=== PATIENT | female | born 1970 | race Two or more races ===

== ENCOUNTER → 2017-07-11 | Emergency (ER) | payer OTHER ==
[~2017-07-11] VITALS: Ht 157.5 cm; Wt 84.4 kg
[~2017-07-11] MED LIST: GLIMEPIRIDE2 MG; GLUCOTROL10 MG; LANTUS; LEVSIN/SL0.125 MG SL; ONGLYZA2.5 MG; PRINIVIL5 MG; ZANTAC300 MG
== END | disposition home or self-care (01) ==
LOC: ER 08:58
DX: B34.9 Viral infection, unspecified (principal)

== ENCOUNTER 2017-11-09 16:15 | Emergency (ER) | payer OTHER ==
[~2017-11-09] VITALS: Ht 157.5 cm; Wt 84.4 kg
[2017-11-09] MEDS ORDERED: KETO10TA2 PO (17:43)
[2017-11-09] MEDS ORDERED: BACTRIM DS TAB1 EACH PO (17:43)
== END 2017-11-09 18:09 | disposition home or self-care (01) ==
LOC: ER 16:15
DX: L02.416 Cutaneous abscess of left lower limb (principal)

== ENCOUNTER 2018-10-30 18:21 | Emergency (ER) | payer OTHER ==
[~2018-10-30] VITALS: Ht 167.6 cm; Wt 82.6 kg
[~2018-10-30 18:21] MED LIST changes: +BACTRIM DS TAB1 EACH PO; +KETO10TA2 PO
[2018-10-31] MEDS ORDERED: KETO10TA2 PO (06:07)
[2018-10-31] MEDS ORDERED: CEFUROXIME500 MG PO (06:07)
== END 2018-10-31 06:04 | disposition home or self-care (01) ==
LOC: ER 18:21
DX: N21.1 Calculus in urethra (principal); N39.0 Urinary tract infection, site not specified

== ENCOUNTER 2018-11-16 00:07 | Emergency (ER) | payer OTHER ==
[~2018-11-16] VITALS: Ht 157.5 cm; Wt 83.5 kg
[~2018-11-16 00:07] MED LIST changes: +CEFUROXIME500 MG PO
[2018-11-16] MEDS ORDERED: DICLOFENAC POTA50 MG PO (06:59)
[2018-11-16] MEDS ORDERED: CIPRO500 MG PO (06:59)
== END 2018-11-16 08:08 | disposition home or self-care (01) ==
LOC: ER 00:07
DX: N39.0 Urinary tract infection, site not specified (principal); R10.31 Right lower quadrant pain

== ENCOUNTER 2018-11-21 16:14 | Emergency (ER) | payer OTHER ==
[~2018-11-21] VITALS: Ht 157.5 cm; Wt 83.5 kg
[~2018-11-21 16:14] MED LIST changes: +CIPRO500 MG PO; +DICLOFENAC POTA50 MG PO
[2018-11-21] MEDS ORDERED: TRADJENTA5 MG (16:31)
== END 2018-11-21 21:09 | disposition home or self-care (01) ==
LOC: ER 16:14
DX: K42.9 Umbilical hernia without obstruction or gangrene (principal); N83.292 Other ovarian cyst, left side; R10.2 Pelvic and perineal pain

== ENCOUNTER 2019-03-11 19:28 | Emergency (ER) | payer OTHER ==
[~2019-03-11] VITALS: Ht 157.5 cm; Wt 83.9 kg
[~2019-03-11 19:28] MED LIST changes: +TRADJENTA5 MG
[2019-03-11] MEDS ORDERED: BENZACLIN GEL25 GM TOP (22:57)
[2019-03-11] MEDS ORDERED: CYCLOBENZAPRINE10 MG PO (22:57)
[2019-03-11] MEDS ORDERED: VOLTAREN-XR100 MG PO (22:57)
== END 2019-03-11 23:43 | disposition home or self-care (01) ==
LOC: ER 19:28
DX: S30.0XXA Contusion of lower back and pelvis, initial encounter (principal); M54.5 Low back pain; W06.XXXA Fall from bed, initial encounter; Y93.89 Activity, other specified; Y92.092 Bedroom in other non-institutional residence as the place of occurrence of the external cause; Y99.8 Other external cause status

== ENCOUNTER 2019-11-12 09:56 | Emergency (ER) | payer OTHER ==
[~2019-11-12] VITALS: Ht 157.5 cm; Wt 84.4 kg
[~2019-11-12 09:56] MED LIST changes: +BENZACLIN GEL25 GM TOP; +CYCLOBENZAPRINE10 MG PO; +VOLTAREN-XR100 MG PO
== END 2019-11-12 13:04 | disposition home or self-care (01) ==
LOC: ER 09:56
DX: L30.8 Other specified dermatitis (principal); R21 Rash and other nonspecific skin eruption

== ENCOUNTER 2019-11-27 20:16 | Emergency (ER) | payer OTHER ==
[~2019-11-27] VITALS: Ht 157.5 cm; Wt 84.4 kg
== END 2019-11-27 22:50 | disposition home or self-care (01) ==
LOC: ER 20:16
DX: L30.8 Other specified dermatitis (principal); T78.49XA Other allergy, initial encounter; X58.XXXA Exposure to other specified factors, initial encounter

== ENCOUNTER 2020-03-05 16:11 | Emergency (ER) | payer OTHER ==
[~2020-03-05] VITALS: Ht 157.5 cm; Wt 84.4 kg
== END 2020-03-05 18:26 | disposition home or self-care (01) ==
LOC: ER 16:11
DX: B02.9 Zoster without complications (principal)

== ENCOUNTER 2020-03-31 16:07 | Emergency (ER) | payer OTHER ==
[~2020-03-31] VITALS: Ht 157.5 cm; Wt 84.4 kg
== END 2020-03-31 19:56 | disposition home or self-care (01) ==
LOC: ER 16:07
DX: M62.830 Muscle spasm of back (principal); R10.814 Left lower quadrant abdominal tenderness

== ENCOUNTER 2020-07-21 16:03 | Emergency (ER) | payer OTHER ==
[~2020-07-21] VITALS: Ht 157.5 cm; Wt 84.4 kg
== END 2020-07-21 19:15 | disposition home or self-care (01) ==
LOC: ER 16:03
DX: M79.674 Pain in right toe(s) (principal)

== ENCOUNTER → 2020-10-24 | Emergency (ER) | payer OTHER | END | disposition left against medical advice (07) | LOC: ER 15:24 | DX: Z53.20 Procedure and treatment not carried out because of patient's decision for unspecified reasons (principal) ==

== ENCOUNTER 2021-02-03 11:08 | Emergency (ER) | payer OTHER ==
[~2021-02-03] VITALS: Ht 157.5 cm; Wt 84.4 kg
[2021-02-03] MEDS ORDERED: DICLOFENAC POTA50 MG PO (17:04)
[2021-02-03] MEDS ORDERED: CYCLOBENZAPRINE10 MG PO (17:04)
== END 2021-02-03 18:01 ==
LOC: ER 11:08
DX: M62.830 Muscle spasm of back (principal); E11.65 Type 2 diabetes mellitus with hyperglycemia

== ENCOUNTER 2021-09-21 22:28 | Emergency (ER) | payer OTHER ==
[~2021-09-21] VITALS: Ht 157.5 cm; Wt 83.5 kg
[2021-09-22] MEDS ORDERED: SINGULAIR 10MG10 MG PO (04:09)
[2021-09-22] MEDS ORDERED: ZYNCOF 20-400120 ML PO (04:09)
[2021-09-22] MEDS ORDERED: FLOVENT HFA12 GM IH (04:09)
== END 2021-09-22 05:15 ==
LOC: ER 22:28
DX: J45.909 Unspecified asthma, uncomplicated (principal); E11.9 Type 2 diabetes mellitus without complications; Z79.84 Long term (current) use of oral hypoglycemic drugs; I10 Essential (primary) hypertension; Z88.0 Allergy status to penicillin; Z20.822 Contact with and (suspected) exposure to COVID-19

== ENCOUNTER 2022-01-24 13:46 | Emergency (ER) | payer OTHER | END 2022-01-24 17:22 | disposition home or self-care (01) | LOC: ER 13:46 | DX: J11.1 Influenza due to unidentified influenza virus with other respiratory manifestations (principal); Z88.6 Allergy status to analgesic agent; J45.909 Unspecified asthma, uncomplicated; E11.42 Type 2 diabetes mellitus with diabetic polyneuropathy; Z79.84 Long term (current) use of oral hypoglycemic drugs; K29.70 Gastritis, unspecified, without bleeding ==

== ENCOUNTER 2022-01-27 14:45 | Outpatient (CLI) | payer OTHER ==
[~2022-01-27 14:45] MED LIST changes: +FLOVENT HFA12 GM IH; +METFORMIN HCL500 M3 PO; +SINGULAIR 10MG10 MG PO; +ZYNCOF 20-400120 ML PO
== END 2022-01-27 15:41 | disposition home or self-care (01) ==
LOC: ASH CLINIC 14:45
PROVIDERS: ATTEND General Practice
DX: U07.1 COVID-19 (principal)

== ENCOUNTER 2022-03-08 08:11 | Emergency (ER) | payer OTHER ==
[~2022-03-08] VITALS: Ht 157.5 cm; Wt 79.8 kg
[2022-03-08] MEDS ORDERED: LIPITOR20 MG PO (08:44)
[2022-03-08] MEDS ORDERED: LEVSIN/SL0.125 MG PO (16:08)
[2022-03-08] MEDS ORDERED: CELEBREX100 MG PO (16:08)
[2022-03-08] MEDS ORDERED: ENZYCAP PO (16:08)
== END 2022-03-08 16:17 ==
LOC: ER 08:11
DX: R10.11 Right upper quadrant pain (principal); K59.00 Constipation, unspecified; E11.9 Type 2 diabetes mellitus without complications; I10 Essential (primary) hypertension; Z88.6 Allergy status to analgesic agent; K57.90 Diverticulosis of intestine, part unspecified, without perforation or abscess without bleeding; K76.0 Fatty (change of) liver, not elsewhere classified

== ENCOUNTER 2022-03-14 14:50 | Emergency (ER) | payer OTHER ==
[~2022-03-14] VITALS: Ht 157.5 cm; Wt 79.8 kg
[~2022-03-14 14:50] MED LIST changes: +CELEBREX100 MG PO; +ENZYCAP PO; +LEVSIN/SL0.125 MG PO; +LIPITOR20 MG PO
== END 2022-03-14 20:06 | disposition home or self-care (01) ==
LOC: ER 14:50
DX: S09.93XA Unspecified injury of face, initial encounter (principal); S69.92XA Unspecified injury of left wrist, hand and finger(s), initial encounter; W19.XXXA Unspecified fall, initial encounter; Y93.9 Activity, unspecified; Y92.9 Unspecified place or not applicable; Z88.6 Allergy status to analgesic agent

== ENCOUNTER 2022-05-14 17:47 | Emergency (ER) | payer OTHER ==
[~2022-05-14] VITALS: Ht 157.5 cm; Wt 80.7 kg
[2022-05-14] MEDS ORDERED: NORFLEX100MG PO (21:14)
[2022-05-14] MEDS ORDERED: KETO10TA2 PO (21:14)
== END 2022-05-14 22:20 | disposition home or self-care (01) ==
LOC: ER 17:47
DX: S40.011A Contusion of right shoulder, initial encounter (principal); S30.0XXA Contusion of lower back and pelvis, initial encounter; W18.30XA Fall on same level, unspecified, initial encounter; Y93.89 Activity, other specified; Y92.59 Other trade areas as the place of occurrence of the external cause; Y99.9 Unspecified external cause status; Z88.8 Allergy status to other drugs, medicaments and biological substances; E11.9 Type 2 diabetes mellitus without complications; Z79.84 Long term (current) use of oral hypoglycemic drugs; I10 Essential (primary) hypertension; M54.50 Low back pain, unspecified

== ENCOUNTER 2022-05-27 21:46 | Emergency (ER) | payer OTHER ==
[~2022-05-27] VITALS: Ht 157.5 cm; Wt 108.9 kg
[~2022-05-27 21:46] MED LIST changes: +NORFLEX100MG PO
== END 2022-05-28 05:47 | disposition home or self-care (01) ==
LOC: ER 21:46
DX: R10.84 Generalized abdominal pain (principal); Z88.8 Allergy status to other drugs, medicaments and biological substances; E11.9 Type 2 diabetes mellitus without complications; Z79.84 Long term (current) use of oral hypoglycemic drugs

== ENCOUNTER 2022-08-08 13:14 | Emergency (ER) | payer OTHER ==
[~2022-08-08] VITALS: Ht 162.6 cm; Wt 85.3 kg
== END 2022-08-08 18:22 | disposition home or self-care (01) ==
LOC: ER 13:14
DX: L02.211 Cutaneous abscess of abdominal wall (principal); Z88.6 Allergy status to analgesic agent; E11.9 Type 2 diabetes mellitus without complications; Z20.822 Contact with and (suspected) exposure to COVID-19

== ENCOUNTER 2023-01-02 14:30 | Emergency (ER) | payer OTHER ==
[~2023-01-02] VITALS: Ht 157.5 cm; Wt 79.8 kg
== END 2023-01-02 20:09 | disposition home or self-care (01) ==
LOC: ER 14:30
DX: U07.1 COVID-19 (principal); Z88.6 Allergy status to analgesic agent; Z88.8 Allergy status to other drugs, medicaments and biological substances

== ENCOUNTER 2023-01-25 08:40 | Outpatient (CLI) | payer OTHER | END 2023-01-25 08:53 | disposition home or self-care (01) | LOC: RAD 08:40 | PROVIDERS: ATTEND Anesthesiology | DX: M54.50 Low back pain, unspecified (principal); M46.1 Sacroiliitis, not elsewhere classified; M25.559 Pain in unspecified hip; S84.12XA Injury of peroneal nerve at lower leg level, left leg, initial encounter; M79.662 Pain in left lower leg ==